=== PATIENT | male | born 1980 | race Hispanic/Latino ===

== ENCOUNTER 2017-07-25 19:48 | Observation (INO) | payer SELFPAY ==
[2017-07-25 19:54] VITALS: BP 136/85; PULSE 107; RESP 18; TEMP 98.9; O2SAT 97
--- NOTE | 2017-07-25 21:07 | ED PDOC ---
HPI: Psych/Substance Abuse Time Seen by Provider: 07/25/17 19:56 Chief Complaint (Nursing): Psychiatric Evaluation Chief Complaint (Provider): Psychiatric evaluation ED Caveat: Acuity of Condition History Per: Other (Police) History/Exam Limitations: clinical condition Additional Complaint(s): The patient is a 37yo male, brought to the ED by the police, with an alias of Drew Garland, for an evaluation. Per police, the patient had a bizarre behaviour in public. Of note, the officer who brought the patient in today reports he brought the same patient to this facility 2 weeks ago but as a Drew Hermosilloe. Currently, a full HPI and ROS is limited as the patient is with disorganized speech, rambling with extreme poverty of content. 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 Past Medical History Reviewed: Historical Data, Nursing Documentation, Vital Signs Vital Signs: Last Vital Signs Temp 98.9 F 07/25/17 19:51 Pulse 107 H 07/25/17 19:51 Resp 18 07/25/17 19:51 BP 136/85 07/25/17 19:51 Pulse Ox 97 07/25/17 19:51 - Family History Family History: States: No Known Family Hx - Social History Alcohol: Occasional - Allergies Allergies/Adverse Reactions: Allergies Allergy/AdvReac Type Severity Reaction Status Date / Time Unobtainable Allergy Verified 07/25/17 19:50 Review of Systems Review Of Systems: ROS cannot be obtained secondary to pt's inabilty to answer questions. Physical Exam - Physical Exam Appears: Positive for: No Acute Distress Head Exam: Positive for: ATRAUMATIC, NORMAL INSPECTION, NORMOCEPHALIC Skin: Positive for: Warm, Dry Eye Exam: Positive for: Normal appearance Neck: Positive for: Supple Cardiovascular/Chest: Positive for: Regular Rate, Rhythm Respiratory: Positive for: Normal Breath Sounds. Negative for: Respiratory Distress Extremity: Negative for: Deformity, Swelling Neurologic/Psych: Positive for: Mood/Affect (colorful affect) - ECG O2 Sat by Pulse Oximetry: 97 (RA) Pulse Ox Interpretation: Normal Medical Decision Making Medical Decision Making: Time: 1957 Impression: 37yo male brought in under alias, clinically manic on presentation Plan: -- Crisis evaluation -- 1:1 observation Reassess Scribe Attestation: Documented by Denise Goode acting as a scribe for Pradeep Robin MD. Provider Attestation: All medical record entries made by the Scribe were at my direction and personally dictated by me. I have reviewed the chart and agree that the record accurately reflects my personal performance of the history, physical exam, medical decision making, and the department course for this patient. I have also personally directed, reviewed, and agree with the discharge instructions and disposition. ED OBSERVATION Date of observation admission: 07/25/17 Time of observation admission: 21:43 - Goals of Observation Goals of observation are:: 07/25/17 21:43 Patient pending crisis evaluation. 07/25/17 23:10 Evaluated by crisis and has been deemed stable and at no risk for discharge. Diagnosis: Mood disorder Mood stable. Scribe Attestation: Documented by Franky Cline acting as a scribe for Pradeep Robin MD. MD [place] Attestation: All medical record entries made by the Scribe were at my direction and personally dictated by me. I have reviewed the chart and agree that the record accurately reflects my personal performance of the history, physical exam, medical decision making, and the department course for this patient. I have also personally directed, reviewed, and agree with the discharge instructions and disposition. Disposition - Clinical Impression Clinical Impression: Mood disorder - Disposition Disposition: Routine/Home Disposition Time: 21:40 Condition: STABLE
== END 2017-07-25 23:27 | disposition home or self-care (01) ==
LOC: H.ER 19:48 → H.EROBSV 21:43
PROVIDERS: ADMIT Emergency Medicine; ATTEND Emergency Medicine
DX: F39 Unspecified mood [affective] disorder (principal)
CPT/HCPCS: 99282; G0378